=== PATIENT | male | born 1960 | race Two or more races ===

== ENCOUNTER 2018-11-07 10:51 | Emergency (ER) | payer OTHER ==
[~2018-11-07] VITALS: Ht 177.8 cm; Wt 72.6 kg
[2018-11-07 11:17] VITALS: BP 100/77
[2018-11-07] MEDS ORDERED: IBUPROFEN 800 MG TAB PO ONE (13:15)
== END 2018-11-07 13:26 | disposition home or self-care (01) ==
LOC: ER 10:51
DX: S92.512A Displaced fracture of proximal phalanx of left lesser toe(s), initial encounter for closed fracture (principal); X58.XXXA Exposure to other specified factors, initial encounter; Y93.66 Activity, soccer; Y99.8 Other external cause status; Y92.89 Other specified places as the place of occurrence of the external cause
CPT/HCPCS: 73630